=== PATIENT | female | born 1970 | race Hispanic/Latino ===

== ENCOUNTER 2018-10-09 11:15 | Outpatient (CLI) | payer BC ==
[2018-10-09 12:46] LABS: Bilirubin,Urine NEG (Negative); Blood,Urine NEG (Negative); Color,Urine Straw (Yellow); Protein,Urine <15 mg/dL mg/dL (Negative); Urobilinogen,Urine < 2.0 mg/dL (<2.0)
[2018-10-10 10:19] LABS: Hematocrit 34.5 % (30.3-42.9); Hemoglobin 10.7 gm/dl (10.1-14.3); Mean Corpuscular HGB Conc 31 % (30-34); Platelet Count 306 K/mm3 (140-440); Red Blood Count 5.31 M/mm3 (3.65-5.03)
[2018-10-10 10:20] LABS: Mean Corpuscular Volume 65 fl (79-97)
[2018-10-10 10:37] LABS: Alanine Aminotransferase 8 units/L (7-56); Albumin 4.1 g/dL (3.9-5); BUN/Creatinine Ratio 13; Blood Urea Nitrogen 10 mg/dL (7-17); Calcium 8.7 mg/dL (8.4-10.2); Chol/HDL Ratio 4.72 %; HDL Cholesterol 36 mg/dL (40-59); Hemolysis Index 0; LDL Cholesterol,Direct 110 mg/dL (50-130)
[2018-10-13 16:32] LABS: Vitamin D, 25-OH, D2 <4 ng/mL
== END 2018-10-09 11:16 | disposition home or self-care (01) ==
LOC: LAB 11:15
PROVIDERS: ATTEND Internal Medicine
DX: Z13.1 Encounter for screening for diabetes mellitus (principal); Z13.220 Encounter for screening for lipoid disorders; Z13.21 Encounter for screening for nutritional disorder
CPT/HCPCS: 36415; 80053; 80061; 81001; 82306; 82607; 83036; 84443; 85027

== ENCOUNTER 2019-01-29 08:57 | Outpatient (CLI) | payer BC ==
[2019-01-29 12:42] LABS: Chol/HDL Ratio 4.37 %
[2019-01-29 12:53] LABS: Free T4 (Free Thyroxine) 0.99 ng/dL (0.76-1.46)
[2019-02-02 11:23] LABS: Vitamin D, 25-OH, D2 49 ng/mL
== END 2019-01-29 08:58 | disposition home or self-care (01) ==
LOC: LAB 08:57
PROVIDERS: ATTEND Internal Medicine
DX: E03.9 Hypothyroidism, unspecified (principal); E78.5 Hyperlipidemia, unspecified; E55.9 Vitamin D deficiency, unspecified; R73.03 Prediabetes
CPT/HCPCS: 36415; 80061; 82306; 83036; 84439; 84443

== ENCOUNTER 2019-05-21 08:53 | Outpatient (CLI) | payer BC ==
[2019-05-21 11:26] LABS: Chol/HDL Ratio 4.22 %
== END 2019-05-21 08:54 | disposition home or self-care (01) ==
LOC: LAB 08:53
PROVIDERS: ATTEND Internal Medicine
DX: E78.5 Hyperlipidemia, unspecified (principal); R73.03 Prediabetes
CPT/HCPCS: 36415; 80061; 83036

== ENCOUNTER 2019-11-19 08:50 | Outpatient (CLI) | payer BC ==
--- NOTE | 2019-11-19 10:08 | Mammography Report ---
DIGITAL SCREENING MAMMOGRAM WITH CAD, 11/19/2019 INDICATION: Routine screening mammography. TECHNIQUE: Digital bilateral 2D mammography was obtained in the craniocaudal and mediolateral obliq ue projections. This examination was interpreted with the benefit of Computer-Aided Detection analysi s. COMPARISON: 02/04/2015 FINDINGS: Breast Density: There are scattered areas of fibroglandular density. There is no evidence of dominant mass, suspicious calcifications or architectural distortion in eithe r breast. IMPRESSION: Follow up recommendation: Routine yearly BI-RADS Category 1: Negative. A "normal" or negative report should not discourage follow up or biopsy of a clinically significant f inding. A written summary of these findings will be mailed to the patient. The patient will be entered into a mammography reporting system which will generate a reminder letter for the patient's next appointmen t at the appropriate interval. The [employer] recommends yearly mammograms starting at age 40 and continuing as l etienne as a woman is in good health. Breast MRI is recommended for women with an approximate 20-25% or greater lifetime risk of breast cancer, including women with a strong family history of breast or ova bryson cancer or who have been treated for Hodgkin's disease. Signer Name: Brock Mar MD Signed: 11/19/2019 10:04 AM Workstation Name: [id number]
== END 2019-11-19 08:51 | disposition home or self-care (01) ==
LOC: MAMMO 08:50
PROVIDERS: ATTEND Internal Medicine
DX: Z12.31 Encounter for screening mammogram for malignant neoplasm of breast (principal)
CPT/HCPCS: 77067

== ENCOUNTER 2020-05-19 11:42 | Outpatient (CLI) | payer BC ==
--- NOTE | 2020-05-19 13:33 | XRay Report ---
LEFT KNEE 3 VIEW(S) INDICATION / CLINICAL INFORMATION: LEFT KNEE PAIN COMPARISON: None available. FINDINGS: BONES / JOINT(S): No acute fracture or subluxation. No significant arthritis. SOFT TISSUES: No significant abnormality. ADDITIONAL FINDINGS: None. Signer Name: Landon Farias MD Signed: 05/19/2020 1:28 PM Workstation Name: [id number]
== END 2020-05-19 11:43 | disposition home or self-care (01) ==
LOC: XRAY 11:42 → LAB 11:42 → XRAY 11:43
PROVIDERS: ATTEND Orthopaedic Surgery
DX: M17.12 Unilateral primary osteoarthritis, left knee (principal)

== ENCOUNTER 2020-06-11 11:06 | Outpatient (CLI) | payer BC ==
--- NOTE | 2020-06-11 13:23 | Magnetic Resonance Report ---
MRI left knee without contrast INDICATION: Left knee pain TECHNIQUE: Axial coronal and sagittal images FINDINGS: There is a complex tear within the posterior root of the medial meniscus. Small signal irre gularity posterior horn and body as well. The lateral meniscus appears normal. ACL PCL are intact. Pa tella tendon and quadriceps tendon are intact. Patellofemoral alignment appears normal. There is a dot int effusion and popliteal cyst no loose body is seen. Collateral ligaments appear normal. Cartilage thinning is seen throughout the medial compartment. IMPRESSION: 1. Complex tears of the posterior horn posterior root of the medial meniscus. 2. Joint effusion and popliteal cyst. Signer Name: Jeyson Wells MD Signed: 06/11/2020 1:19 PM Workstation Name: [id number]
== END 2020-06-11 11:07 | disposition home or self-care (01) ==
LOC: MRI 11:06
PROVIDERS: ATTEND Orthopaedic Surgery
DX: S83.242A Other tear of medial meniscus, current injury, left knee, initial encounter (principal); M25.462 Effusion, left knee; M71.22 Synovial cyst of popliteal space [Baker], left knee; M17.12 Unilateral primary osteoarthritis, left knee; X58.XXXA Exposure to other specified factors, initial encounter; Y93.9 Activity, unspecified; Y92.89 Other specified places as the place of occurrence of the external cause; Y99.8 Other external cause status
CPT/HCPCS: 73721

== ENCOUNTER 2020-08-06 08:50 | Outpatient (CLI) | payer BC ==
[2020-08-06] MEDS ORDERED: ALBUTEROL 2.5 MG/3 ML NEBU IH ONE (10:18)
--- NOTE | 2020-08-28 00:51 | Pulmonary Function Test ---
DATE OF VISIT: 08/06/2020 PULMONARY FUNCTION TEST SPIROMETRY: FVC 2.21 liters, which is 73% of the predicted. FEV1 is 1.13, which is 47% of the predicted. FEV1/FVC ratio is 51. Flow volume loop FEF 25-75% is 0.49 liters per second, which is 19% of the predicted. LUNG VOLUMES: TLC 5.75, which is 129% of predicted and DLCO is 4.4, which is 23% of the predicted. IMPRESSION: Moderate to severe obstructive ventilatory impairment as evidenced by decrease in the FEV1, and FEV1/FVC and also decrease in DLCO and increase in TLC. Post-bronchodilators, there is a significant improvement in FVC, FEV1. TID: [id number] RECEIPT: [id number] [facility] cc: Rm Zarate MD
== END 2020-08-06 08:51 | disposition home or self-care (01) ==
LOC: PF 08:50
PROVIDERS: ATTEND Internal Medicine
DX: R05 Cough (principal)
CPT/HCPCS: 94060; 94726; 94729; A9270

== ENCOUNTER 2020-08-08 09:16 | Outpatient (CLI) | payer BC ==
--- NOTE | 2020-08-08 10:23 | XRay Report ---
CHEST 2 VIEWS INDICATION / CLINICAL INFORMATION: COUGH. COMPARISON: None available. FINDINGS: SUPPORT DEVICES: None. HEART / MEDIASTINUM: No significant abnormality. LUNGS / PLEURA: No significant pulmonary or pleural abnormality. No pneumothorax. ADDITIONAL FINDINGS: No significant additional findings. IMPRESSION: 1. No acute findings. Signer Name: Landon Farias MD Signed: 08/08/2020 10:18 AM Workstation Name: [id number]
== END 2020-08-08 09:17 | disposition home or self-care (01) ==
LOC: XRAY 09:16
PROVIDERS: ATTEND Internal Medicine
DX: R05 Cough (principal)
CPT/HCPCS: 71046

== ENCOUNTER 2020-10-09 05:37 | Day surgery (SDC) | payer BC ==
[~2020-10-09 05:37] MED LIST: BUPIVACAINE-EPINEPHRINE/PF 0.5%-1:200,000 (10 ML) VIAL IJ ONE; ceFAZolin/Water 2 GM/20 ML 2 GM/20 ML SYRINGE IV NR; methylPREDNISolone ACETATE 40 MG/1 ML INJ INTRA-ARTI ONE
[2020-10-09] MEDS ORDERED: LACTATED RINGERS 1,000 ML IV SCH (06:00)
[2020-10-09] MEDS ORDERED: ACETAMINOPHEN 500 MG TAB PO SCH (06:00)
[2020-10-09] MEDS ORDERED: GABAPENTIN 300 MG CAP PO NR (06:00)
[2020-10-09] MEDS ORDERED: CELECOXIB 200 MG CAP PO NR (06:00)
[2020-10-09] MEDS ORDERED: MIDAZOLAM 2 MG/2 ML INJ IV NR (06:00)
[2020-10-09] MEDS ORDERED: BACTERIOSTATIC SODIUM CHLORIDE 0.9% 30 ML VIAL INFILTRATI ONE (06:24)
[2020-10-09] MEDS ORDERED: methylPREDNISolone ACETATE 40 MG/1 ML INJ ONE (07:11)
[2020-10-09] MEDS ORDERED: BUPIVACAINE/PF (0.5%) 5 MG/1 ML 30 ML VIAL INFILTRATI ONE (07:11)
[2020-10-09] MEDS ORDERED: LIDOCAINE PF 100 MG/5 ML (CARDIAC SYRINGE) IV ONE (07:19)
[2020-10-09] MEDS ORDERED: fentaNYL 100 MCG/2 ML INJ ONE ×2 (07:19→08:44)
[2020-10-09] MEDS ORDERED: EPINEPHrine 30 MG/30 ML INJ IV ONE (07:19)
[2020-10-09] MEDS ORDERED: propofoL 200 MG/20 ML VIAL IV ONE (07:20)
[2020-10-09] MEDS ORDERED: ONDANSETRON 4 MG/2 ML INJ ONE (07:22)
--- NOTE | 2020-10-09 07:30 | Anesthesia Consultation ---
Anesthesia Consult and Med Hx Date of service: 10/09/20 - Airway Anesthetic Teeth Evaluation: Edentulous ROM Head & Neck: Adequate Mental/Hyoid Distance: Adequate Mallampati Class: Class III Intubation Access Assessment: Possibly Difficult - Pulmonary Exam CTA: Yes - Cardiac Exam Cardiac Exam: RRR - Pre-Operative Health Status ASA Pre-Surgery Classification: ASA3 Proposed Anesthetic Plan: General - Pulmonary Hx Smoking: Yes (quit 1yr ago) COPD: Yes (used all scheduled inhalers this morning) Hx Sleep Apnea: No (CHRISTIANO PRE SCREEN HIGH RISK) - Cardiovascular System Hx Hypertension: Yes (took amlodipine this morning) Hx Heart Attack/AMI: No Hx Percutaneous Transluminal Coronary Angioplasty (PTCA): No Hx Cardia Arrhythmia: No - Central Nervous System CVA: No - Endocrine Hx Renal Disease: No Hx Liver Disease: No Hx Insulin Dependent Diabetes: No Hx Non-Insulin Dependent Diabetes: No Hx Thyroid Disease: No - Other Systems Hx Obesity: Yes (BMI 44) - Additional Comments Anesthesia Medical History Comments: No hx anesthetic complications.
--- NOTE | 2020-10-09 07:30 | Anesthesia Day of Surgery ---
Anesthesia Day of Surgery - Day of Surgery Patient Examined: Yes Patient H&P Reviewed: Yes Patient is NPO: Yes
[2020-10-09] MEDS ORDERED: HYDROcodone/ACETAMINOPHEN 5-325 MG TAB PO PRN (08:00)
[2020-10-09] MEDS ORDERED: ONDANSETRON 4 MG/2 ML INJ IV PRN (08:00)
[2020-10-09] MEDS ORDERED: fentaNYL 100 MCG/2 ML INJ IV PRN (08:00)
[2020-10-09] MEDS ORDERED: SODIUM CHLORIDE 0.9% IRRIG SOLN 2000 ML IR ONE (08:30)
[2020-10-09] MEDS ORDERED: EPINEPHrine/PF 1 MG/1 ML INJ IV ONE (08:30)
[2020-10-09] MEDS ORDERED: BUPIVACAINE-EPINEPHRINE/PF 0.5%-1:200,000 (10 ML) VIAL IJ ONE (08:55)
[2020-10-09] MEDS ORDERED: methylPREDNISolone ACETATE 40 MG/1 ML INJ INTRA-ARTI ONE (08:55)
--- NOTE | 2020-10-09 09:49 | Procedure Note ---
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 A timeout procedure was done to identify the patient and the correct operative site. The leg was exsanguinated followed by inflation of the pneumatic tourniquet to 300 mmHg routine arthroscopic portals were made about the patella tendon following introduction of the arthroscope and insufflation of the joint with normal saline solution examination revealed these findings the patient was noted to have grade 3-3 chondromalacia involving both the medial femoral condyle and a corresponding tibial articular surfaces there is also a horizontal cleavage tear noted in the posterior horn of the medial meniscus the anterior cruciate ligament was intact the lateral compartment was explored the patient was there is having a intact lateral meniscus and some grade 1-2 changes in the articular surface in the lateral compartment following this the suprapatellar pouch was examined no loose bodies or other pathology was seen here. The arthroscopic shaver was introduced into the knee joint nexy the articular cartilage was then debrided back to healthy-appearing cartilage tissue followed by debridement of the posterior horn of the medial meniscus using a combination of biting forceps and the 4.0 shaver again care was taken to remove only tissue did appear to flap in and out of the knee joint following debridement the knee was copiously irrigated with saline solution the arthroscope was removed and the stab wound were repaired A mixture of Depo-Medrol and Marcaine was injected followed by placing routine postoperative dressings and Wilman wraps to the thigh in the area the patient tolerated the procedure there were no complications he was sent to postanesthesia recovery in stable condition Anesthesia: GETA Surgeon: LALI TAMAYO (Miki Mcguire, 1st assist) Estimated blood loss: minimal Pathology: none Condition: stable Disposition: PACU
--- NOTE | 2020-10-09 10:57 | Post Anesthesia Evaluation ---
- Post Anesthesia Evaluation Patient Participated: Yes Airway Patent: Yes Stable Respiratory Function: Yes Nausea/Vomiting: No Temp > 96.8F: Yes Pain Manageable: Yes Adequeate Hydration: Yes Anesthesia Complications: No
[2020-10-09 12:10] VITALS: BP 113/63
== END 2020-10-09 05:38 | disposition home or self-care (01) ==
LOC: OR 05:37
PROVIDERS: ATTEND Orthopaedic Surgery
DX: S83.242A Other tear of medial meniscus, current injury, left knee, initial encounter (principal); M94.262 Chondromalacia, left knee; E78.00 Pure hypercholesterolemia, unspecified; I10 Essential (primary) hypertension; J44.9 Chronic obstructive pulmonary disease, unspecified; K21.9 Gastro-esophageal reflux disease without esophagitis; E66.9 Obesity, unspecified; M19.90 Unspecified osteoarthritis, unspecified site; D64.9 Anemia, unspecified; Z20.822 Contact with and (suspected) exposure to COVID-19; Z79.899 Other long term (current) drug therapy; Z87.891 Personal history of nicotine dependence; Z68.41 Body mass index [BMI] 40.0-44.9, adult; Z98.51 Tubal ligation status; Z98.890 Other specified postprocedural states; X58.XXXA Exposure to other specified factors, initial encounter; Y93.89 Activity, other specified; Y92.89 Other specified places as the place of occurrence of the external cause; Y99.8 Other external cause status
CPT/HCPCS: 29881; 36415; 84703; A4217; J0171; J0690; J1030; J2001; J2250; J2405; J2704; J3010; J7120; U0003

== ENCOUNTER 2021-05-25 08:15 | Outpatient (CLI) | payer BC ==
--- NOTE | 2021-05-25 09:10 | Vascular Lab Report ---
DUPLEX DOPPLER LOWER EXTREMITY VEINS, LEFT INDICATION: R60.0 LOCALIZED EDEMA. TECHNIQUE: Duplex doppler imaging was performed through the veins of the left lower extremity using venous compression and other maneuvers. COMPARISON: No relevant prior imaging study available. FINDINGS: Left Common femoral vein: Negative. Left Superficial femoral vein: Negative. Left Popliteal vein: Negative. Left Calf veins: Negative. Additional findings: There is mild nonspecific subcutaneous edema. IMPRESSION: No sonographic evidence for DVT in the left lower extremity. Signer Name: Hardik King Jr, MD Signed: 05/25/2021 9:05 AM Workstation Name: [id number]
== END 2021-05-25 08:16 | disposition home or self-care (01) ==
LOC: VAS 08:15
PROVIDERS: ATTEND Internal Medicine
DX: R60.0 Localized edema (principal)

== ENCOUNTER 2021-11-30 07:31 | Outpatient (CLI) | payer BC ==
--- NOTE | 2021-11-30 10:27 | Ultrasound Report ---
LIMITED RUQ ABDOMINAL ULTRASOUND INDICATION: R10.00 ABDOMINAL PAIN. COMPARISON: No relevant prior imaging study available. FINDINGS: Pancreas: Visualized portions show no significant abnormality. Abdominal Aorta: Obscured. IVC: No significant abnormality. Liver: The liver measures 15 cm in length. The liver parenchyma is echogenic characteristic of steat osis. No focal liver mass. Normal hepatopedal blood flow in the main portal vein. Gallbladder: The gallbladder appears to be packed with shadowing stones. Gallbladder wall thickness m easures 2 mm. No obvious pericholecystic fluid.. Bile ducts: No significant abnormality. Common bile duct measures 3.6 mm. Right kidney: The right kidney is borderline atrophic measuring 9 cm in length and demonstrates incre ased echotexture consistent with chronic renal parenchymal disease. Hydronephrosis or focal lesion. Free fluid: None. Additional Findings: None. IMPRESSION: Mild hepatic steatosis. Cholelithiasis but no convincing evidence for acute cholecystitis. Mild chronic right renal parenchymal disease.. Signer Name: Hardik King Jr, MD Signed: 11/30/2021 10:23 AM Workstation Name: [id number]
== END 2021-11-30 07:32 | disposition home or self-care (01) ==
LOC: US 07:31
PROVIDERS: ATTEND Internal Medicine Gastroenterology
DX: K76.0 Fatty (change of) liver, not elsewhere classified (principal); K80.20 Calculus of gallbladder without cholecystitis without obstruction
CPT/HCPCS: 76705